=== PATIENT | male | born 1965 | race Caucasian/White ===

== ENCOUNTER 2016-08-26 08:09 | Day surgery (SDC) | payer BC ==
[2016-08-26] MEDS ORDERED: Lactated Ringers 1,000 ML IV SCH (08:15)
[2016-08-26] MEDS ORDERED: Propofol 200 MG/20 ML SDV IV ONE (10:30)
--- NOTE | 2016-08-26 10:50 | PCM.OPNOTE ---
- General Post-Op/Procedure Note Date of Surgery/Procedure: 08/26/16 Operative Procedure(s): c scope with bx Findings: descending colon polyp Pre Op Diagnosis: personal hx of colon polyp Post-Op Diagnosis: descending colon polyp Anesthesia Technique: MAC Primary Surgeon: River Feng Anesthesia Provider: Gerry Noyola Pathology: descending colon polyp Complications: None Condition: Good Free Text/Narrative:: see dictation
[2016-08-26 11:09] VITALS: BP 105/52
--- NOTE | 2016-08-26 15:01 | OR ---
DATE OF OPERATION: 08/26/2016 SURGEON: River Feng MD PROCEDURE PERFORMED: Colonoscopy with cold forceps biopsy. PREOPERATIVE DIAGNOSIS: Personal history of colon polyps. POSTOPERATIVE DIAGNOSIS: Polyp ascending colon. INDICATIONS FOR PROCEDURE: This is a 50-year-old white male, who presents for followup colonoscopy. He has a personal history of colon polyps and is due now for followup scope. DESCRIPTION OF OPERATION: After an excellent IV sedation was administered, digital rectal exam was performed. No marked abnormality was noted. The flexible colonoscope was inserted and advanced to the cecum without difficulty. The prep was excellent. The following findings were noted: Ascending colon, unremarkable. Descending colon, a small polypoid lesion, biopsied with cold forceps and sent for permanent. Sigmoid and rectum unremarkable. Colon was deflated. The scope was removed. The patient tolerated the procedure well and was taken to recovery room in good condition. /[id number] /MODL
== END 2016-08-26 11:50 | disposition home or self-care (01) ==
LOC: FB.SDS 08:09
PROVIDERS: ATTEND Surgery
PROC: 0DBM8ZX Excision of Descending Colon, Via Natural or Artificial Opening Endoscopic, Diagnostic (ICD-10-PCS; principal; 2016-08-26)
DX: D12.4 Benign neoplasm of descending colon (principal); Z86.010 Personal history of colon polyps; Z88.0 Allergy status to penicillin; F17.200 Nicotine dependence, unspecified, uncomplicated
CPT/HCPCS: 45380; 88305; J2704; J7120

== ENCOUNTER 2021-12-05 06:15 | Day surgery (SDC) | payer BC ==
[~2021-12-05 06:15] MED LIST: Sodium Chloride 0.9% 10 ML Syringe FLUSH PRN
[2021-12-05] MEDS ORDERED: Glycopyrrolate 0.2 MG/ML 5 ML MDV IV ONE (06:16)
[2021-12-05] MEDS ORDERED: Propofol 200 MG/20 ML SDV IV ONE (06:16)
[2021-12-05] MEDS: Lactated Ringers 1,000 ML IV SCH (06:45)
[2021-12-05 08:53] VITALS: BP 130/93; PULSE 88
== END 2021-12-05 08:40 | disposition home or self-care (01) ==
LOC: FB.SDS 06:15
PROVIDERS: ATTEND Surgery
DX: Z12.11 Encounter for screening for malignant neoplasm of colon (principal); E78.5 Hyperlipidemia, unspecified; F17.210 Nicotine dependence, cigarettes, uncomplicated; Z79.899 Other long term (current) drug therapy; Z98.890 Other specified postprocedural states; Z88.0 Allergy status to penicillin
CPT/HCPCS: 88305; J2704; J3490; J7120